=== PATIENT | male | born 1955 | race Caucasian/White ===

== ENCOUNTER 2020-09-04 10:36 | Outpatient (CLI) | payer MEDICARE, OTHER ==
--- NOTE | 2020-09-04 11:09 | RAD ---
EXAM: 2 views of the left humerus HISTORY: left arm pain after fall on ice COMPARISON: None FINDINGS: 2 views of the left humerus shows no evidence of acute fracture or dislocation. No degenera tive changes are seen. No soft tissue swelling is present. IMPRESSION: No evidence of acute osseous abnormality.
--- NOTE | 2020-09-04 12:08 | RAD ---
Radiograph left shoulder 3 views: HISTORY: 65-year-old male with acute traumatic left shoulder pain from fall FINDINGS: No fracture or dislocation. 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 No high-grade degenerative changes of louie ohumeral joint. IMPRESSION: No fracture
== END 2020-09-04 10:37 | disposition home or self-care (01) ==
LOC: BICRAD 10:36
PROVIDERS: ATTEND Nurse Practitioner Family
DX: M25.512 Pain in left shoulder (principal); M79.622 Pain in left upper arm

== ENCOUNTER 2022-08-21 15:23 | Observation (INO) | payer MEDICARE, OTHER ==
[2022-08-21] MEDS ORDERED: Dextrose 5% in Water 1,000 ML IV PRN (16:59)
[2022-08-21] MEDS ORDERED: Dextrose 50% Abboject 50 ML SYRINGE SLOW IVP PRN (16:59)
[2022-08-21] MEDS ORDERED: TETANUS, DIPHTHERIA TOX,ADULT (TDVAX) 0.5 ML VIAL IM ONE (16:59)
[2022-08-21] MEDS ORDERED: Morphine 2 MG/ML VIAL SLOW IVP PRN (16:59)
[2022-08-21] MEDS ORDERED: Ondansetron PF 4 MG/2 ML Vial IVP PRN (16:59)
[2022-08-21] MEDS ORDERED: hydrALAZINE 20 MG/ML VIAL SLOW IVP PRN (17:06)
[2022-08-21] MEDS ORDERED: Insulin Regular 300 UNITS/3 ML VIAL SC PRN ×2 (17:36)
[2022-08-21 18:34] LABS: PTT 29.6 sec (22.9-36.1); Prothrombin Time 13.6 sec (12.0-14.7)
[2022-08-21 18:35] LABS: Anion Gap 16 mmol/L (10-20); BUN (Urea Nitrogen) 20 mg/dL (8.4-25.7); Calc. Creatinine Clearance 0 mL/min (70-130); Calcium 9.8 mg/dL (7.8-10.44); Carbon Dioxide 20 mmol/L (23-31); Chloride 104 mmol/L (98-107); Estimated GFR 98; Glucose 115 mg/dL (80-115); Potassium 3.7 mmol/L (3.5-5.1); Sodium 136 mmol/L (136-145)
[2022-08-21 18:46] VITALS: BMI 35.5
[2022-08-21] MEDS: Senokot S 8.6-50 MG TAB PO SCH (20:01)
[2022-08-21] MEDS: Acetaminophen 500 MG TAB PO SCH (20:02)
[2022-08-21] MEDS: Famotidine/PF 20 mg/2ml Vial SLOW IVP SCH (20:06)
[2022-08-21 23:37] LABS: SARS-CoV-2 NAA Rapid Test Not Detected (NotDetected)
[2022-08-22] MEDS: Acetaminophen 500 MG TAB PO SCH ×3 (00:17→11:12)
[2022-08-22 06:39] LABS: #Eosinphils 0.3 thou/uL (0.0-0.7); #Lymphocytes 1.8 thou/uL (1.20-3.40); #Monocytes 0.8 thou/uL (0.11-0.59); #Neutrophils 5.2 thou/uL (1.40-6.50); %Basophils 0.6 % (0.0-1.0); %Eosinophils 4.1 % (0.0-10.0); %Lymphocytes 21.6 % (21.0-51.0); %Monocytes 9.9 % (0.0-10.0); %Neutrophils 63.9 % (42.0-75.0); Hemoglobin 14.2 g/dL (14.0-18.0); Mean Corpuscular HGB CONC 34.7 g/dL (32.0-36.0); Mean Corpuscular Hemoglobin 33.8 pg (27.0-31.0); Mean Corpuscular Volume 97.4 fl (78.0-98.0); Mean Platelet Volume 8.3 fL (7.4-10.4); Platelet Count 177 10x3/uL (130-400); RBC Distribution Width 12.2 % (11.5-14.5); Red Blood Cell (RBC) Count 4.19 mill/uL (4.70-6.10); White Blood Cell (WBC) Count 8.2 10x3/uL (4.8-10.8)
[2022-08-22 06:55] LABS: Anion Gap 16 mmol/L (10-20); BUN (Urea Nitrogen) 18 mg/dL (8.4-25.7); Calc. Creatinine Clearance 154 mL/min (70-130); Calcium 9.6 mg/dL (7.8-10.44); Carbon Dioxide 21 mmol/L (23-31); Chloride 103 mmol/L (98-107); Estimated GFR 98; Glucose 118 mg/dL (80-115); Magnesium 1.6 mg/dL (1.6-2.6); Phosphorus 3.2 mg/dL (2.3-4.7); Potassium 3.6 mmol/L (3.5-5.1); Sodium 136 mmol/L (136-145)
[2022-08-22] MEDS ORDERED: Magnesium 2 GM/50 ML(in water) 2 GM in Premix Bag 1 BAG IVPB SCH (08:00)
[2022-08-22] MEDS ORDERED: PHOS-NAK 1 PKT PACK PO SCH (08:00)
[2022-08-22] MEDS: Famotidine/PF 20 mg/2ml Vial SLOW IVP SCH (08:54)
[2022-08-22] MEDS: Senokot S 8.6-50 MG TAB PO SCH (08:55)
[2022-08-22] MEDS ORDERED: FLU VACC QS2022-23(65YR UP)/PF 240 MCG/0.7 ML SYRINGE IM ONE (09:00)
[2022-08-22] MEDS ORDERED: Metoprolol Tartrate 25 MG TAB PO SCH (09:00)
[2022-08-22] MEDS ORDERED: Polyethylene Glycol 3350 17 GM Packet PO SCH (09:00)
[2022-08-22 12:50] VITALS: BP 115/78; TEMP 97.6
[2022-08-22] MEDS ORDERED: Atorvastatin Calcium 40 MG TAB PO SCH (21:00)
== END 2022-08-22 13:25 | disposition home or self-care (01) ==
LOC: ERS 15:23 → SURG A 16:56
PROVIDERS: ADMIT Surgery; ATTEND Surgery
DX: S06.5X0A Traumatic subdural hemorrhage without loss of consciousness, initial encounter (principal); S02.31XA Fracture of orbital floor, right side, initial encounter for closed fracture; I10 Essential (primary) hypertension; E11.9 Type 2 diabetes mellitus without complications; E78.5 Hyperlipidemia, unspecified; Z23 Encounter for immunization; Z85.72 Personal history of non-Hodgkin lymphomas; Z79.82 Long term (current) use of aspirin; Z79.84 Long term (current) use of oral hypoglycemic drugs; Z79.899 Other long term (current) drug therapy; Z95.5 Presence of coronary angioplasty implant and graft; Z20.822 Contact with and (suspected) exposure to COVID-19; W20.8XXA Other cause of strike by thrown, projected or falling object, initial encounter
CPT/HCPCS: 70450; 80048 ×2; 82962 ×2; 83735; 84100; 85025; 85610; 85730; 90714; 96374; 96375 ×2; 96376; 99285; G0378 ×3; U0002; 36415; 36416; G0390; J2272; J3475; S0028